=== PATIENT | female | born 1975 | race Two or more races ===

== ENCOUNTER → 2024-07-14 | Outpatient (CLI) | payer BC, SELFPAY ==
[2024-07-14 12:15] LABS: Alanine Aminotransferase 36 U/L (10-49); Albumin, Serum 4.5 gm/dL (3.5-5.0); Albumin/Globulin Ratio 1.7 (1.2-2.2); Alkaline Phosphatase 122 U/L (46-116); Anion Gap 6 (7-16); Aspartate Amino Transferase 27 U/L (0-34); BUN/Creatinine Ratio 16 Ratio (12-20); Bilirubin,Total 0.4 mg/dL (0.3-1.2); Blood Urea Nitrogen 11 mg/dL (9-23); Calcium 9.8 mg/dL (8.3-10.6); Calcium (Corrected) 9.8 mg/dL (8.5-10.1); Carbon Dioxide 30.5 mMol/L (20.0-31.0); Chloride 108 mMol/L (98-107); Creatinine (Component) 0.7 mg/dL (0.6-1.3); Globulin 2.6 gm/dL (2.3-3.5); Glucose 84 mg/dL (74-106); Osmolality,Calculated 285 (275-295); Potassium 3.9 mMol/L (3.4-5.1); Sodium 144 mMol/L (136-145); Total Protein 7.1 gm/dL (5.7-8.2); eGFR > 60 See Note
[2024-07-15 02:10] LABS: Vitamin D 25 Hydroxy Total 133.7 ng/mL (7.3-40.2)
== END | disposition home or self-care (01) ==
PROVIDERS: PCP Nurse Practitioner Family; Referring Provider Psychiatry & Neurology Neurology; Visit Provider Psychiatry & Neurology Neurology
DX: M79.7 Fibromyalgia (principal); E55.9 Vitamin D deficiency, unspecified
CPT/HCPCS: 36415; 80053; 82306

== ENCOUNTER → 2024-08-25 | Outpatient (CLI) | payer BC, SELFPAY ==
--- NOTE | 2024-08-25 10:43 | XR_ITS ---
Examination: Lumbar spine, 5 views Technique: Lumbar spine AP, lateral, coned lateral lower lumbar spine, bilateral obliques 5 views Exam date and time: August 25, 2024 1111 hrs. Indications: Low back pain beginning 3 months ago Findings: Moderate diffuse facet arthropathy Moderate osteopenia No lumbar fracture Significant degenerative disc disease T11-T12 Moderate disc narrowing L5-S1 Impression: No lumbar fracture Mild disc narrowing L5-S1
== END | disposition home or self-care (01) ==
PROVIDERS: PCP Family Medicine; Referring Provider Registered Nurse Community Health; Visit Provider Registered Nurse Community Health
DX: M48.07 Spinal stenosis, lumbosacral region (principal)
CPT/HCPCS: 72110

== ENCOUNTER → 2024-09-17 | Outpatient (CLI) | payer BC, SELFPAY ==
--- NOTE | 2024-09-17 08:30 | XR_ITS ---
Examination: MRI thoracic spine, without contrast Date and time of exam: September 17, 2024 0852 hours. INDICATIONS: Mid back pain beginning 2019, no injury, tenderness in the back difficulty walking secondary to burning back pain Technique: Multiple axial sagittal and coronal images of the thoracic spine have been obtained with the Siemens high-resolution 1.5 Kristine MRI scanner. Images obtained include T2-weighted fat-suppressed sagittal sections, TR 3500, TE 46, T2 weighted coronal fat suppressed images, TR 3050, TE 84, T2-weighted transverse fat suppressed images, TR 3260, TE 63, proton density transverse images, TR 4720 TE 46, and T1 weighted coronal images, TR 560, TE 13. Findings: Adequate alignment of thoracic vertebral bodies on the lateral view Normal marrow signal thoracic vertebral bodies Mild diffuse thoracic disc narrowing Diffuse thoracic disc desiccation Axial images T7-T8 demonstrate 4 mm right paracentral disc protrusion contiguous with the ventral right margin of the thoracic cord No localized enlargement thoracic cord IMPRESSION: Diffuse thoracic degenerative disc disease T7-T8 4 mm right paracentral disc protrusion contiguous with the ventral right margin of the thoracic cord
== END | disposition home or self-care (01) ==
LOC: SMRI 07:58
PROVIDERS: Referring Provider Nurse Practitioner Family; Visit Provider Nurse Practitioner Family
DX: M51.34 Other intervertebral disc degeneration, thoracic region (principal); M51.24 Other intervertebral disc displacement, thoracic region
CPT/HCPCS: 72146

== ENCOUNTER → 2025-05-04 | Outpatient (CLI) | payer BC, SELFPAY ==
[2025-05-04 10:48] LABS: Basophils # (Auto) 0.1 Thou/mm3 (0.0-0.2); Basophils % (Auto) 1 % (0-2.5); Eosinophils # (Auto) 0.2 Thou/mm3 (0.0-0.5); Eosinophils % (Auto) 2 % (0-10); Hematocrit 42.9 % (36.0-46.0); Hemoglobin 13.8 g/dL (12.0-16.0); Immature Granulocytes Auto 0.03 Thou/mm3 (0.00-0.00); Lymphocytes # (Auto) 2.9 Thou/mm3 (1.0-4.8); Lymphocytes % (Auto) 39 % (10-50); Mean Corpuscular HGB Conc 32.2 g/dl (31.0-37.0); Mean Corpuscular Hemoglobin 28.0 pg (25.0-35.0); Mean Corpuscular Volume 87 fL (80-100); Monocytes # (Auto) 0.5 Thou/mm3 (0.0-0.8); Monocytes % (Auto) 6 % (0-12); Neutrophils # (Auto) 3.7 Thou/mm3 (1.8-7.7); Neutrophils % (Auto) 51 % (37-80); Nucleated Red Blood Cell # 0.00 Thou/mm3 (0.00-0.00); Nucleated Red Blood Cell % 0 /100 WBC (0); Platelet Count 269 Thou/mm3 (140-440); RDW Standard Deviation 39.6 fL (36.4-46.3); Red Blood Count 4.92 Miln/mm3 (4.00-5.20); White Blood Count 7.3 Thou/mm3 (3.6-11.0)
[2025-05-04 10:56] LABS: Glucose Estimated Average 105 mg/dL (80-131); Hemoglobin A1C 5.3 % Hgb (4.8-6.0)
[2025-05-04 10:57] LABS: INR 0.9 (0.9-1.3); Partial Thromboplastin Time 28.1 Seconds (22.0-36.0); Prothrombin Time 9.9 Seconds (9.0-12.2)
--- NOTE | 2025-05-04 10:58 | XR_ITS ---
Examination: Diagnostic digital mammography, bilateral Computer aided detection 3-D breast Tomosynthesis, bilateral Date and time of exam: 05/04/2025, 11:06 a.m. Comparisons: May 2018 through February 2023 Indications: Right breast pain/implant rupture Technique: Nonmagnified MLO, CC views of the breasts to been obtained, reconstructed from 3-D Tomosynthesis images. R2 computer aided detection program utilized for evaluation of suspicious masses and/or abnormal calcifications. 3-D Tomosynthesis images obtained. Findings: There are scattered areas of fibroglandular density. Bilateral subpectoral saline implants appear intact. Multiple folds seen in the capsule of the right implant. These findings are minimally changed since 2018. No evidence of abnormal masses or suspicious calcifications. Impression: BI-RADS category 2: Benign findings Recommend 1 year follow-up mammogram
[2025-05-04 11:06] LABS: Alanine Aminotransferase 45 U/L (10-49); Albumin, Serum 4.6 gm/dL (3.5-5.0); Albumin/Globulin Ratio 1.9 (1.2-2.2); Alkaline Phosphatase 109 U/L (46-116); Anion Gap 8 (7-16); Aspartate Amino Transferase 33 U/L (0-34); BUN/Creatinine Ratio 10 Ratio (12-20); Bilirubin,Total 0.5 mg/dL (0.3-1.2); Blood Urea Nitrogen 7 mg/dL (9-23); Calcium 10.3 mg/dL (8.3-10.6); Calcium (Corrected) 10.3 mg/dL (8.5-10.1); Carbon Dioxide 29.9 mMol/L (20.0-31.0); Chloride 108 mMol/L (98-107); Creatinine (Component) 0.7 mg/dL (0.6-1.3); Globulin 2.4 gm/dL (2.3-3.5); Glucose 87 mg/dL (74-106); Osmolality,Calculated 287 (275-295); Potassium 4.1 mMol/L (3.4-5.1); Sodium 146 mMol/L (136-145); Thyroid Stimulating Hormone 1.65 uIU/mL (0.55-4.78); Total Protein 7.0 gm/dL (5.7-8.2); eGFR > 60 See Note
== END | disposition home or self-care (01) ==
LOC: COPL 10:54 → CDIM 05-24 11:09
PROVIDERS: PCP Student in an Organized Health Care Education/Training Program; Referring Provider Student in an Organized Health Care Education/Training Program; Visit Provider Student in an Organized Health Care Education/Training Program
DX: R92.323 Mammographic fibroglandular density, bilateral breasts (principal); T85.43XA Leakage of breast prosthesis and implant, initial encounter; Z13.29 Encounter for screening for other suspected endocrine disorder; Z13.1 Encounter for screening for diabetes mellitus
CPT/HCPCS: 36415; 77062; 77066; 80053; 83036; 84443; 85025; 85610; 85730; G0279